=== PATIENT | female | born 1990 | race Caucasian/White ===

== ENCOUNTER 2022-05-22 07:20 | Emergency (ER) | payer OTHER ==
[2022-05-22] MEDS ORDERED: methylPREDNISolone Sodium Succinate 125 MG/2 ML SDV IM ONE (07:34)
[2022-05-22] MEDS ORDERED: diphenhydrAMINE 25 MG Tab PO ONE (07:34)
[2022-05-22] MEDS ORDERED: Famotidine 20 MG Tab PO ONE (07:35)
== END 2022-05-22 08:20 | disposition home or self-care (01) ==
LOC: DL.ED 07:20
DX: N39.0 Urinary tract infection, site not specified (principal); B37.3 Candidiasis of vulva and vagina; T37.0X5A Adverse effect of sulfonamides, initial encounter
CPT/HCPCS: 96372; 99283; A9270; J2930